=== PATIENT | male | born 1995 | race Two or more races ===

== ENCOUNTER 2024-04-25 23:55 | Emergency (ER) | payer OTHER ==
[~2024-04-25] VITALS: Ht 175.3 cm; Wt 70.9 kg
[2024-04-26 00:44] VITALS: BP 106/66; PULSE 72; RESP 16; O2SAT 98
[2024-04-26] MEDS ORDERED: PROPARACAINE HCL 0.5% OPTH(EYE) SOL 15ML OP ONE (01:00)
--- NOTE | 2024-04-26 01:36 | ED.PDOC ---
Foreign Body HPI Comments 28 year old male presents to the ED with a chief complaint of foreign body in RT eye. Patient states he was grinding metal, was not wearing protective eyewear and a piece of metal went inside RT eye. Patient is currently experiencing pain and redness. No other symptoms or modifying factors presents at this time. Chief Complaint: Foreign Body Time Seen by MD: 00:42 History of Present Illness: Medications, Allergies Allergies: Coded Allergies: NO KNOWN ALLERGIES (Unverified , 04/26/24) Home Meds Active Scripts Bacitracin-Polymyxin B (Ophth) (Bacitracin/Polymyxin B) Op Oin, 1 STRIP OP QID for 10 Days, #30 OIN Prov:LOREN RONDON MD 04/26/24 Information Source: Patient Mode of Arrival: Ambulatory Timing: Hours Duration: Since onset Severity: Moderate Prehospital treatment: None Location: Right (eye) Context: Accidental Foreign Body: Other (metal) Removal: Was not attempted Associated signs and symptoms: Pain Past Medical History PAST MEDICAL HISTORY: Denies Surgical History: Denies all surgeries Family History Family History: Reviewed,noncontributory to illness, No family hx of Cancer, No family hx of DM, No family hx of Heart adi, No family hx of HTN, No family hx ofKidney adi, No family hx of Liver adi, No family hx of Lung adi, No family hx of Stroke Social History Smoker: Non-Smoker Alcohol: Denies ETOH Use Drugs: Denies Drug Use Lives In: Home Constitutional: reports: chills, diaphoresis, fatigue, fever, malaise, sweats, weakness, others EENTM: reports: eye pain, eye redness, others (foreign body RT eye); denies: blurred vision, double vision, ear bleeding, ear discharge, ear drainage, ear pain, ear ringing, hearing loss, mouth pain, mouth swelling, nasal discharge, nose bleeding, nose congestion, nose pain, photophobia, tearing, throat pain, throat swelling, voice changes Respiratory: denies: cough, hemoptysis, orthopnea, SOB at rest, shortness of breath, SOB with excertion, stridor, wheezing, others Cardiovascular: denies: chest pain, dizzy spells, diaphoresis, Dyspnea on exertion, edema, irregular heart beat, left arm pain, lightheadedness, palpitations, PND, syncope, others Gastrointestinal: denies: abdomen distended, abdominal pain, blood streaked bowels, constipated, diarrhea, dysphagia, difficulty swallowing, hematemesis, melena, nausea, poor appetite, poor fluid intake, rectal bleeding, rectal pain, vomiting, others Genitourinary: denies: burning, dysuria, flank pain, frequency, hematuria, incontinence, penile discharge, penile sore, pain, testicle pain, testicle swelling, urgency, others Neurological: denies: dizziness, fainting, headache, left sided numbness, left sided weakness, numbness, paresthesia, pre-existing deficit, right sided numbness, right sided weakness, seizure, speech problems, tingling, tremors, weakness, others Musculoskeletal: denies: back pain, gout, joint pain, joint swelling, muscle pain, muscle stiffness, neck pain, others Integumetry: denies: bruises, change in color, change in hair/nails, dryness, laceration, lesions, lumps, rash, wounds, others Allergic/Immunocompromised: denies: Difficulty Healing, Frequent Infections, Hives, Itching, others Hematologic/Lymphatic: denies: anemia, blood clots, easy bleeding, easy bruising, swollen glands, others Endocrine: denies: excessive hunger, excessive sweating, excessive thirst, excessive urination, flushing, intolerance to cold, intolerance to heat, un explained weight gain, unexplained weight loss, others Psychiatric: denies: anxiety, bipolar disorder, depression, hopeless, panic disorder, schizophrenia, sleepless, suicidal, others All Other Systems: Reviewed and Negative Physical Exam General Appearance: Moderate Distress, Normal HEENT: Cornea (R), Other (pinpoint FB right lower cornea) Neck: Full Range of Motion, Non-Tender, Normal, Normal Inspection Respiratory: Chest Non-Tender, Lungs Clear, No Accessory Muscle Use, No Respiratory Distress, Normal Breath Sounds Cardiovascular: No Edema, No JVD, No Murmur, No Gallop, Normal Peripheral Puls es, Regular Rate/Rhythm Breast Exam: Deferred Gastrointestinal: No Organomegaly, Non Tender, No Pulsatile Mass, Normal Bowel Sounds, Soft Genitalia: Deferred Pelvic: Deferred Rectal: Deferred Extremities: No calf tenderness, Normal capillary refill, Normal inspection, Normal range of motion, Non-tender, No pedal edema Musculoskeletal : Apperance: Normal Neurologic: Alert, 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 Was a procedure done?: Yes Sedation Sedation?: No Foreign Body Removal Foreign body in: Eye Anesthetic: Other (tetracaine) Procedure: Identified, Removed Informed consent obtained: Yes Risks/benefits/alt described: Yes FB Differential Dx Differential Diagnosis: Abrasion, Foreign Body, Laceration, Perforation, Other X-Ray, Labs, Meds, VS Vital Signs Date Time Temp Pulse Resp B/P (MAP) Pulse Ox O2 Delivery O2 Flow Rate FiO2 04/26/24 00:44 97.7 72 16 106/66 (79) 98 Time of 1ST Reevaluation: 01:12 Reevaluation 1ST: Unchanged Time of 2ND Reevaluation: 02:00 Reevaluation 2ND: Improved Patient Education/Counseling: Diagnosis, Treatment, Prognosis Family Education/Counseling: No Family Present Departure 1 Departure Time of Disposition: 02:30 Impression: Primary Impression: Right corneal abrasion Additional Impression: Corneal foreign body Disposition: 01 HOME / SELF CARE / HOMELESS Condition: Stable e-Prescriptions Bacitracin-Polymyxin B (Ophth) (Bacitracin/Polymyxin B) Op Oin 1 STRIP OP QID for 10 Days, #30 OIN Prov: LOREN RONDON MD 04/26/24 Discharged With: Self Critical Care Note Critical Care Time?: No Stability Stability form required: No I personally scribed for LOREN RONDON MD ([email or web address]) on 04/26/24 at 01:36. Electronically submitted by Chayo Arana ([email or web address]). LOREN RONDON MD Apr 26, 2024 01:36
[2024-04-26] MEDS: FLUORESCEIN SOD OPTH TEST STRIP RIGHTEYE ONE (01:53)
[2024-04-26] MEDS: TETRACAINE HCL 0.5% OPTH(EYE) SOLN 4ML RIGHTEYE ONE (01:53)
[2024-04-26] MEDS ORDERED: BACIOIN49 OP (02:01)
== END 2024-04-26 03:49 | disposition home or self-care (01) ==
LOC: ER 04-26
DX: S05.01XA Injury of conjunctiva and corneal abrasion without foreign body, right eye, initial encounter (principal); X58.XXXA Exposure to other specified factors, initial encounter; Y93.89 Activity, other specified; Y92.89 Other specified places as the place of occurrence of the external cause; Y99.8 Other external cause status

== ENCOUNTER 2024-06-20 19:42 | Emergency (ER) | payer OTHER ==
[~2024-06-20] VITALS: Ht 175.3 cm; Wt 74.3 kg
[~2024-06-20 19:42] MED LIST: BACIOIN49 OP
[2024-06-20 20:23] LABS: Urine Bacteria None Seen /hpf (None Seen)
[2024-06-20 20:26] LABS: Basophils # (auto) 0.1 10 ^3/uL (0-0.2); Basophils % (auto) 0.6 % (0.0-2.0); Eosinophils # (auto) 0.1 10 ^3/uL (0-0.8); Eosinophils % (auto) 1.6 % (0.0-7.0); Hematocrit 43.4 % (41.0-53.0); Hemoglobin 14.9 g/dL (13.5-17.5); Lymphocytes % (auto) 23.6 % (10.0-50.0); Mean Corpuscular Hemoglobin 30.5 pg (28.0-32.0); Mean Corpuscular Hgb Conc. 34.3 g/dL (32.0-36.0); Monocytes # (auto) 0.5 10 ^3/uL (0-1.3); Monocytes % (auto) 6.3 % (0.0-12.0); Neutrophils # (auto) 5.9 10 ^3/uL (1.6-8.6); Neutrophils % (auto) 67.9 % (37.0-80.0); Platelet Count (auto) 186 10^3/uL (140-450); Red Blood Cells 4.87 10^6/uL (4.5-5.90); Red Cell Distribution Width 13.1 % (11.8-14.3); White Blood Cell 8.6 10^3/uL (4.4-10.8)
[2024-06-20 20:32] LABS: Urine Blood 3+ /uL (Negative); Urine Clarity Ex.Turbid (Clear); Urine Color Light-Brown (Yellow); Urine Mucus FEW (None Seen); Urine Protein, UAD 1+ (Negative); Urine Squamous Epithelial Cell FEW /hpf (<5); Urine Urobilinogen 2 mg/dL (Negative); Urine WBC 29 /HPF (0-3); Urine pH 5.5 (5.0-9.0)
--- NOTE | 2024-06-20 20:32 | ED.PDOC ---
History of Present Illness HPI Comments 28 y/o M presents with c/o non-radiating, LLQ abdominal pain, today. Patient endorses on coming to ED after being at another hospital facility in [place], [place], due to pain, suddenly, worsening after being discharged. He comments on receiving CT with contrast imaging on his abdomen and being informed and pres cribed stool softeners and a "suppository" for constipation. He comments on using said medication, earlier, with minor relief and pain, currently, being less intense then earlier. Patient reports no significant medical or surgical history, recent injuries, spoiled food intake, or other relevant or pertinent information. He denies any nausea, vomiting, diarrhea, or other associated symptoms or modifiers at this time. Chief Complaint: Abdominal Pain Time Seen by MD: 20:20 Reviewed Notes: Nurses Notes, Medications, Allergies Allergies: Coded Allergies: NO KNOWN ALLERGIES (Unverified , 04/26/24) Home Meds Active Scripts Polyethylene Glycol 3350 (Miralax) 17 Gm Pow, 17 GM PO BID for 20 Days, #120 POW Prov:LOREN RONDON MD 06/20/24 Bacitracin-Polymyxin B (Ophth) (Bacitracin/Polymyxin B) Op Oin, 1 STRIP OP QID for 10 Days, #30 OIN Prov:LOREN RONDON MD 04/26/24 Information Source: Patient Mode of Arrival: Ambulatory Severity: Moderate Timing: Hours Duration: Since onset Prehospital treatment: Other (see HPI) Past Medical History PAST MEDICAL HISTORY: Denies Surgical History: Denies all surgeries Family History Family History: Reviewed,noncontributory to illness, No family hx of Cancer, No family hx of DM, No family hx of Heart adi, No family hx of HTN, No family hx ofKidney adi, No family hx of Liver adi, No family hx of Lung adi, No family hx of Stroke Social History Smoker: Cigarettes Alcohol: Denies ETOH Use Drugs: Denies Drug Use Lives In: Home Gastrointestinal: reports: abdominal pain All Other Systems: Reviewed and Negative (comprehensive systems review is negative unless otherwise stated above or in HPI) Physical Exam General Appearance: Mild Distress, Normal HEENT: Normal ENT Inspection, Pharynx Normal, TMs Normal Neck: Full Range of Motion, Non-Tender, Normal, Normal Inspection Respiratory: Chest Non-Tender, Lungs Clear, No Accessory Muscle Use, No Respiratory Distress, Normal Breath Sounds Cardiovascular: No Edema, No JVD, No Murmur, No Gallop, Normal Peripheral Pulses, Regular Rate/Rhythm Breast Exam: Deferred Gastrointestinal: LLQ (tenderness ), No Organomegaly, No Pulsatile Mass, Normal Bowel Sounds, Soft, Tenderness (LLQ) Genitalia: Deferred Pelvic: Deferred Rectal: Deferred Extremities: No calf tenderness, Normal capillary refill, Normal inspection, Normal range of motion, Non-tender, No pedal edema Musculoskeletal : Apperance: Normal Neurologic: Alert, dental hygienist II-XII nml as Tested, No Motor Deficits, Normal Affect, Normal Mood, No Sensory Deficits Cerebellar Function: Normal Reflexes: Normal Skin: Dry, Normal Color, Warm Lymphatic: No Adenopathy Was a procedure done? Was a procedure done?: No Differential Dx Considerations may include: diverticulitis, PID, cystitis, nephrolithiasis, musculoskeletal pain, constipation, viral syndrome, spoiled food X-Ray, Labs, Meds, VS Vital Signs Date Time Temp Pulse Resp B/P (MAP) Pulse Ox O2 Delivery O2 Flow Rate FiO2 06/20/24 23:04 60 20 129/71 (90) 99 06/20/24 22:18 20 98 Room Air* 0 21 06/20/24 21:57 98.7 63 20 133/58 (83) 97 98.7 06/20/24 20:00 98.4 83 18 116/56 (76) 98 Lab Test 06/20/24 20:15 06/20/24 20:10 Range/Units White Blood Count 8.6 4.4-10.8 10^3/uL Red Blood Count 4.87 4.5-5.90 10^6/uL Hemoglobin 14.9 13.5-17.5 g/dL Hematocrit 43.4 41.0-53.0 % Mean Corpuscular Volume 89.0 80.0-100.0 fL Mean Corpuscular Hemoglobin 30.5 28.0-32.0 pg Mean Corpuscular Hemoglobin Concent 34.3 32.0-36.0 g/dL Red Cell Distribution Width 13.1 11.8-14.3 % Platelet Count 186 140-450 10^3/uL Mean Platelet Volume 8.4 6.9-10.8 fL Neutrophils (%) (Auto) 67.9 37.0-80.0 % Lymphocytes (%) (Auto) 23.6 10.0-50.0 % Monocytes (%) (Auto) 6.3 0.0-12.0 % Eosinophils (%) (Auto) 1.6 0.0-7.0 % Basophils (%) (Auto) 0.6 0.0-2.0 % Neutrophils # (Auto) 5.9 1.6-8.6 10 ^3/uL Lymphocytes # (Auto) 2.0 0.4-5.4 10 ^3/uL Monocytes # (Auto) 0.5 0-1.3 10 ^3/uL Eosinophils # (Auto) 0.1 0-0.8 10 ^3/uL Basophils # (Auto) 0.1 0-0.2 10 ^3/uL Nucleated Red Blood Cells 0.0 % Sodium Level 141 136-145 mmol/L Potassium Level 3.9 3.5-5.1 mmol/L Chloride Level 104 98-107 mmol/L Carbon Dioxide Level 30 20-31 mmol/L Anion Gap 7 5-15 Blood Urea Nitrogen 12 9-23 mg/dL Creatinine 1.28 0.700-1.30 mg/dL Glomerular Filtration Rate Calc 79 >90 mL/min BUN/Creatinine Ratio 9.4 L 10.0-20.0 Serum Glucose 91 74-106 mg/dL Calcium Level 10.2 8.7-10.4 mg/dL Total Bilirubin 0.4 0.2-1.0 mg/dL Aspartate Amino Transferase (AST) 9 L 13-40 U/L Alanine Aminotransferase (ALT) 12 7-40 U/L Alkaline Phosphatase 81 46-116 U/L Total Protein 7.0 5.7-8.2 g/dL Albumin 4.6 3.2-4.8 g/dL Lipase 37 12-53 U/L Urine Color Light-brown Yellow Urine Clarity Ex.turbid Clear Urine pH 5.5 5.0-9.0 Urine Specific Moffat 1.030 1.001-1.035 Urine Protein 1+ H Negative Urine Ketones Trace Negative Urine Blood 3+ H Negative /uL Urine Nitrite Negative Negative Urine Bilirubin Negative Negative Urine Urobilinogen 2 H Negative mg/dL Urine Leukocyte Esterase Negative Negative /uL Urine RBC 4338 0 - 3 /hpf Urine Microscopic WBC 29 H 0-3 /HPF Urine Squamous Epithelial Cells Few <5 /hpf Urine Bacteria None seen None Seen /hpf Urine Mucus Few None Seen Urine Glucose Normal Normal mg/dL Current Medications Medications (Trade) Dose Ordered Sig/Mare Route Start Time Stop Time Status Last Admin Sodium Chloride 1,000 ml @ 1,000 mls/hr Q1H ONCE IVB 06/20/24 20:30 06/20/24 21:29 DC 06/20/24 22:15 Ketorolac Tromethamine (Toradol Injection) 15 mg ONCE ONCE IV 06/20/24 20:30 06/20/24 20:31 DC 06/20/24 22:15 Time of 1ST Reevaluation: 20:50 Reevaluation 1ST: Unchanged Time of 2ND Reevaluation: 21:30 Reevaluation 2ND: Improved Patient Education/Counseling: Diagnosis, Treatment Family Education/Counseling: No Family Present Departure 1 Departure Time of Disposition: 22:00 Impression: Primary Impression: LLQ abdominal pain Disposition: HOME / SELF CARE / HOMELESS Condition: Stable e-Prescriptions Polyethylene Glycol 3350 (Miralax) 17 Gm Pow 17 GM PO BID for 20 Days, #120 POW Prov: LOREN RONDON MD 06/20/24 Discharged With: Self Comments I personally reviewed and interpreted the lab and imaging studies. I reviewed the results with the patient and using shared decision making we decided on outpatient management with closed outpatient follow up. I did notify the patient that there was a risk that his condition could worsen and he agreed to immediately return to the Emergency Department for any worsening symptoms or concerns. Critical Care Note Critical Care Time?: No Stability Stability form required: No Heart Score Heart Score: Heart Score Response (Comments) Value History N/A 0 EKG N/A 0 Age N/A 0 Risk Factors N/A 0 Troponin N/A 0 Total 0 I personally scribed for LOREN RONDON MD ([email or web address]) on 06/20/24 at 20:32. Electronically submitted by Marv Hay ([email or web address]). LOREN RONDON MD Jun 20, 2024 20:32
[2024-06-20 20:43] LABS: Alanine Aminotransferase 12 U/L (7-40); Albumin 4.6 g/dL (3.2-4.8); Alkaline Phosphatase 81 U/L (46-116); Anion Gap 7 (5-15); Aspartate Aminotransferase 9 U/L (13-40); BUN/Creatinine Ratio 9.4 (10.0-20.0); Bilirubin, Total 0.4 mg/dL (0.2-1.0); Blood Urea Nitrogen 12 mg/dL (9-23); Calcium 10.2 mg/dL (8.7-10.4); Carbon Dioxide 30 mmol/L (20-31); Chloride 104 mmol/L (98-107); Glucose 91 mg/dL (74-106); Lipase 37 U/L (12-53); Potassium 3.9 mmol/L (3.5-5.1); Sodium 141 mmol/L (136-145)
--- NOTE | 2024-06-20 21:31 | DVH ---
Exam: CT CT AB PEL WO CON-NO ORAL OR IV History: llq PAIN Comparison Study: None available at time of dictation. TECHNIQUE: Multidetector CT of the abdomen was performed from lung bases to pubic symphysis. Imaging was performed without IV contrast. Axial, coronal and sagittal multiplanar reformats were obtained fr om the axial data set by the technologist. Radiation Dose Information: CT Dose: CTDI volume is 6.1 mGy. Dose-length product is 313.59 mGy*cm FINDINGS: Evaluation of solid organs is limited due to lack of intravenous contrast use. Findings: Lung Bases: No acute or significant lung base finding. Normal heart size. No pleural or pericardial effusion. Liver: The liver is normal in size. No focal lesions. Gallbladder and Biliary Tree: Unremarkable Spleen: Unremarkable Pancreas: The pancreas is grossly normal in appearance. Adrenal Glands: Unremarkable Kidneys: Kidneys are grossly normal without calculi or hydronephrosis. Bladder: Grossly unremarkable for degree of distention. Bowel: The stomach is grossly normal in appearance. Small bowel and colon are normal in caliber and d istribution. The appendix is not visualized; however, no secondary findings of acute appendicitis id entified. Ascites: Absent Lymphadenopathy: No mesenteric, retroperitoneal or periportal lymphadenopathy. Abdominal Wall and Mesentery: Unremarkable. Vasculature: The visualized abdominal aorta is normal in size and caliber. Evaluation of abdominal a nd pelvic vessels is limited due to lack of intravenous contrast. Pelvic Organs: Unremarkable Musculoskeletal: No aggressive focal bony lesions, acute fractures or dislocation. Soft tissues: Unremarkable IMPRESSION: 1. No CT findings of obstruction. 2. Moderately large stool burden throughout the right and transverse colons. 3. No findings of diverticulosis in the left lower quadrant. Radiation optimization: All CT scans at this facility use at least one of these dose optimization reyna hniques: automated exposure control mA and/or kV adjustment per patient size (includes targeted exam s where dose is matched to clinical indication) or iterative reconstruction.
[2024-06-20 21:57] VITALS: TEMP 98.7
[2024-06-20] MEDS ORDERED: POLY335015 PO (22:05)
[2024-06-20] MEDS: KETOROLAC TROMETH 30 MG/ML 1ML VIAL IV ONE (22:15)
[2024-06-20] MEDS: SODIUM CHLORIDE 0.9% 1,000 ML IVB ONE (22:15)
[2024-06-20 22:18] VITALS: RESP 20; O2SAT 98
[2024-06-20 23:04] VITALS: BP 129/71; PULSE 60; RESP 20; O2SAT 99
== END 2024-06-20 23:07 | disposition home or self-care (01) ==
LOC: ER 19:42
DX: R10.32 Left lower quadrant pain (principal); F17.210 Nicotine dependence, cigarettes, uncomplicated
CPT/HCPCS: 36415; 74176; 80053; 81001; 83690; 85025; 96374; 99285; J1885; J7030